=== PATIENT | male | born 1960 | race Caucasian/White ===

== ENCOUNTER 2018-10-06 01:20 | Inpatient (IN) | payer BC ==
[2018-10-06] VITALS (14 sets, daily range): BP systolic 111–135; BP diastolic 63–89
[~2018-10-06] VITALS: Ht 190.5 cm; Wt 83.0 kg
[~2018-10-06 01:20] MED LIST: ALBU2.5V36 INH; ALBU8.5H IH; ALLO-119 PO; ASPI81TA94 PO; FOLI-68 PO; HYDR-653 PO; LOR1 PO; MORP-183 PO; ONDA4TAB9 PO; PANT40TA65 PO; PYRI100T57 PO; SERT-181 PO; SODCTAB PO; TORS5TAB PO
[2018-10-06] MEDS ORDERED: FAMOTIDINE 20 MG TAB PO ONE (07:55)
[2018-10-06] MEDS ORDERED: NORMOSOL R SOLN(*) 1000 ML BAG 1,000 ML IV PRN (07:55)
[2018-10-06] MEDS ORDERED: MIDAZOLAM 2 MG/2 ML VIAL IVP PRN (07:55)
[2018-10-06] MEDS ORDERED: LIDOCAINE/SOD BICARB 8.4% SYR ID ONE (07:55)
[2018-10-06] MEDS ORDERED: fentaNYL CITR 250 MCG/5 ML AMP ONE (08:01)
[2018-10-06] MEDS ORDERED: ONDANSETRON 4 MG/2 ML VIAL ONE (08:02)
[2018-10-06] MEDS ORDERED: LIDOCAINE MPF 1% 5 ML VIAL ONE (08:02)
[2018-10-06] MEDS ORDERED: DEXAMETHASONE SOD PHOS 10MG/ML ONE (08:02)
[2018-10-06] MEDS ORDERED: PROPOFOL EMUL(*) 10MG/ML 20 ML 20 ML ONE (08:02)
[2018-10-06] MEDS ORDERED: KETAMINE HCL 200 MG/20 ML MDV ONE (08:04)
[2018-10-06] MEDS ORDERED: NS 0.9% 20 ML SDV 20 ML ONE (08:06)
[2018-10-06] MEDS ORDERED: REMIFENTANIL HCL 1 MG VIAL ONE (08:13)
[2018-10-06] MEDS ORDERED: LIDO/EPI 1% MDV 1:100,000 20ML INFIL ONE (08:35)
[2018-10-06] MEDS ORDERED: BACITRACIN OINT 15 GM TUBE TP ONE (08:35)
[2018-10-06] MEDS ORDERED: SUCCINYLCHOL CHL 100MG/5ML SYR IVP ONE (08:55)
[2018-10-06] MEDS ORDERED: LR(*) 1000 ML BAG 1,000 ML IV PRN (09:01)
[2018-10-06] MEDS ORDERED: ePHEDrine 25 MG/5 ML DISP.SYR IVP ONE (09:04)
[2018-10-06] MEDS ORDERED: LORazepam 1 MG TAB PO PRN (09:05)
[2018-10-06] MEDS ORDERED: PROMETHAZINE 25 MG/ML 1 ML AMP IVP PRN (09:05)
[2018-10-06] MEDS ORDERED: ALBUTEROL 8 GM INHALER INH PRN (09:05)
--- NOTE | 2018-10-06 09:08 | Post Operative Note ---
Operative Note - ENT Operative Day Date: Oct 06, 2018 Physicians Surgeon: Finn Vendor Management Consultant: Garfield Anesthesia: GETA Diagnosis Pre-Op Diagnosis: metastatic SCC of supraglottis Post-Op Diagnosis: same Procedure Findings: see dictated note Procedure(s): right neck dissection, levels II-V Specimen Removed:(Maybe N/A): right neck dissection Complications: none Fluids Fluids: see anesthesia note Estimated Blood Loss: 100 ml WILLIS VASQUEZ JR, MD Oct 06, 2018 09:08
[2018-10-06] MEDS ORDERED: ceFAZolin(*) 2GM/D5W 50ML 50 ML IVPB ONE (09:30)
[2018-10-06] MEDS ORDERED: NICOTINE 14 MG/24 HR PATCH TD SCH (10:00)
[2018-10-06] MEDS ORDERED: fentaNYL CITR 100 MCG/2 ML AMP ONE ×2 (12:19→12:52)
[2018-10-06] MEDS ORDERED: ESMOLOL 10 MG/ML 10ML SDV ONE (12:32)
[2018-10-06] MEDS ORDERED: HYDR-389 PO (13:56)
[2018-10-06] MEDS: MORPHINE 2 MG/ML SYR IVP PRN ×3 (14:01→23:58)
--- NOTE | 2018-10-06 14:22 | OPERATIVE REPORT 1 ---
EVENT DATE: October 06, 2018 SURGEON: Tao Briseno MD ANESTHESIOLOGIST: Brenton Glass MD ANESTHESIA: General endotracheal. MANAGER CLINICAL PHARMACY: Veronica Merrill CST PREOPERATIVE DIAGNOSIS Metastatic supraglottic squamous cell carcinoma. POSTOPERATIVE DIAGNOSIS Metastatic supraglottic squamous cell carcinoma. PROCEDURE PERFORMED Right modified radical neck dissection, levels 2 through 5 with sacrifice of the internal jugular vein. INDICATIONS Please refer to the preoperative note. DESCRIPTION OF PROCEDURE The patient was positively identified in the preoperative area. He was accompanied there by his . Risks again included but were not limited to bleeding, infection, injury to vascular and/or nervous structures including but not limited to the internal jugular vein, carotid artery, accessory lymphatic ducts, the vagus hypoglossal accessory and gurjit mandibular nerves and those associated with anesthesia. The patient acknowledged understanding of those risks. He was then brought back to the operative suite, placed supine on the operative table and anesthesia was administered. Once asleep, the patient was positioned, then prepped and draped in the usual sterile fashion. Favorable neck crease was identified, greater than two finger breadths below the angle of the mandible and approximately a 15 cm incision was marked. Approximately 5 cc of 1% lidocaine with epinephrine was infiltrated. The aforementioned incision was then made with a 15 blade. The underlying subcutaneous tissue was then dissected with Bovie electrocautery. The platysma muscle was identified and divided with Bovie electrocautery. The patient was noted to have significant scarring likely secondary to his radiation. subplatysmal flaps were elevated superiorly and inferiorly. The fascia was carefully incised with Bovie electrocautery just lateral to its anterior margin. The fascial then was elevated anteriorly and the posteriorly along the sternocleidomastoid muscle. Of note, at the level 3 region the patient was noted to have a suspected metastatic node invading into the muscle. Therefore, a clean rim of sternocleidomastoid tissue was taken with the specimen. I continued my dissection posteriorly into the level 5 region. I then dissected deep to the floor of the neck preserving the spinal roots. I then continued my dissection anteriorly. Again, in the level 3 region, the necrotic node was found to be adherent to the internal jugular vein. As the patient was already status post radiation treatment, I made the decision to sacrifice the vein. This was clamped superiorly and inferiorly and suture ligated. The accessory nerve was identified and preserved. I then came across the floor of the neck. The node packet was rotated anteriorly. The carotid artery was freed from the specimen including the internal jugular vein. The specimen was sent in its entirety for permanent pathology. The wound was then copiously irrigated with normal saline solution. The carotid, vagus and accessory nerves were found to be clear and intact. A Eddie-Martin drain was placed. The platysma muscle was closed with interrupted chronic suture. The skin was then closed in an intermediate fashion. The patient was then turned to anesthesia for emergence. ESTIMATED BLOOD LOSS 100 cc. COMPLICATIONS None. MTDD
[2018-10-06] MEDS ORDERED: NS(*) 0.9% 250 ML BAG 250 ML ONE (16:29)
[2018-10-06] MEDS: ceFAZolin(*) 1 GM VIAL 1 GM in NS(*) 0.9% 100 ML MINI-BAG 100 ML IVPB SCH (16:48)
[2018-10-06] MEDS ORDERED: HYDROCOD/ACETAMIN 2.5-108/5 ML 5 ML UDC PO PRN (18:30)
[2018-10-06] MEDS: MORPHINE CR 15 MG TABCR PO SCH (20:21)
[2018-10-06] MEDS: BACITRACIN OINT 0.9 GM PKT TP SCH (20:21)
[2018-10-06] MEDS: ONDANSETRON 4 MG ODT TABDP SL PRN (20:21)
[2018-10-06] MEDS: PANTOPRAZOLE SOD 40 MG TABEC PO SCH (20:21)
[2018-10-07] MEDS: ceFAZolin(*) 1 GM VIAL 1 GM in NS(*) 0.9% 100 ML MINI-BAG 100 ML IVPB SCH ×3 (00:22→16:56)
[2018-10-07] MEDS: MORPHINE 2 MG/ML SYR IVP PRN ×3 (02:17→06:37)
[2018-10-07 04:04] VITALS: BP 113/68
[2018-10-07 07:29] VITALS: BP 108/63
--- NOTE | 2018-10-07 08:00 | ENT Progress Note ---
Subjective Progress Notes Subjective S: Post op day 1-S/P neck dissection. Patient is doing better this am except having a right sided headache. The liquid Lortab does not seem to be working for the pain. His usual dosage at home is Lortab 750mg--2 tabs every 4 hours. He would like to go back to that dosage. Physical Exam Vital Signs Date Time Temp Pulse Resp B/P (MAP) Pulse Ox O2 Delivery O2 Flow Rate FiO2 10/07/18 07:29 98.0 82 16 108/63 (78) 92 Nasal Cannula 4.0 Intake and Output 10/07/18 07:00 Intake Total 2716 ml Output Total 870 ml Balance 1846 ml Intake Oral 480 ml IV Total 2236 ml Output Urine Total 175 ml Emesis 475 ml Drainage Total 120 ml Estimated Blood Loss 100 ml # Voids 5 General Appearance: Alert, Awake Neuro: No Gross deficits ENT: Moist Mucous Membranes Neck: Other (Incision looks great. Still draining serous fluid. ) Assessment and Plan Problems: (1) Squamous cell cancer of epiglottis Status: Acute Assessment & Plan: Change meds to Lortab 750mg--2 po q 4 hours. DC liquid Lortab. Ambulation prn. Toradol 15mg IV q 8 hours. Anticipate DC home tomorrow. EMILY ZAMBRANO PA-C Oct 07, 2018 08:00
[2018-10-07] MEDS: SODIUM CHLORIDE 1 GR TAB PO SCH (08:31)
[2018-10-07] MEDS: APAP/HYDROCODONE 325/7.5 TAB PO PRN ×3 (08:32→17:00)
[2018-10-07] MEDS: TORSEMIDE 20 MG TAB PO SCH (08:32)
[2018-10-07] MEDS: ALLOPURINOL 300 MG TAB PO SCH (08:32)
[2018-10-07] MEDS: MORPHINE CR 15 MG TABCR PO SCH ×2 (08:32→20:36)
[2018-10-07] MEDS: SERTRALINE HCL 50 MG TAB PO SCH (08:32)
[2018-10-07] MEDS: BACITRACIN OINT 0.9 GM PKT TP SCH ×2 (08:36→20:42)
[2018-10-07] MEDS: KETOROLAC 15 MG/ML VIAL IVP SCH ×2 (11:32→17:43)
[2018-10-07 11:37] VITALS: BP 113/89
[2018-10-07 16:03] VITALS: BP 102/58
[2018-10-07 16:45] VITALS: Ht 190.5 cm; Wt 83.0 kg
[2018-10-07 19:42] VITALS: BP 104/66
[2018-10-07] MEDS: PANTOPRAZOLE SOD 40 MG TABEC PO SCH (20:42)
[2018-10-07] MEDS ORDERED: NICOTINE 14 MG/24 HR PATCH TD SCH (21:00)
[2018-10-07 23:24] VITALS: BP 115/63
[2018-10-08] MEDS: ceFAZolin(*) 1 GM VIAL 1 GM in NS(*) 0.9% 100 ML MINI-BAG 100 ML IVPB SCH ×2 (00:20→08:23)
[2018-10-08] MEDS: KETOROLAC 15 MG/ML VIAL IVP SCH ×2 (00:21→06:05)
[2018-10-08 04:13] VITALS: BP 128/76
[2018-10-08] MEDS: APAP/HYDROCODONE 325/7.5 TAB PO PRN (04:51)
[2018-10-08] MEDS: ONDANSETRON 4 MG ODT TABDP SL PRN (04:51)
[2018-10-08 06:41] VITALS: BP 103/68
[2018-10-08] MEDS ORDERED: CEFU500T10 PO (08:13)
--- NOTE | 2018-10-08 08:17 | Hospitalist Depart ---
Discharge Summary Reason for Hosp/Final Diag: (1) Squamous cell cancer of epiglottis Status: Acute Hospital Course & Plan: Patient underwent right neck dissection on day of a dmission. Merlin reg diet. Pain controlled. Plan on d/c home with AGNES. Departure Weight (Pounds): 183 Condition: Improved Discharge: Home Discharge Code Status: Full Code Time Spent: < 30 min Discharge Instructions Home Meds Reported Medications Acetaminophen/Hydrocodone (HYDROCODON-ACETAMINOPH 7.5-325) 1 Each Ea, 1 TAB PO Q4H PRN for PAIN 10/06/18 Pyridoxine Hcl (VITAMIN B-6) 100 Mg Tablet, 100 MG PO BID 09/25/18 Torsemide (TORSEMIDE) 5 Mg Tablet, 5 MG PO DAILY 09/18/18 Pantoprazole Sodium (PANTOPRAZOLE SODIUM) 40 Mg Tablet.dr, 40 MG PO QDAY, TAB.SR 09/18/18 Ondansetron 4 Mg Odt (ONDANSETRON 4 MG ODT) 4 Mg Tab.rapdis, 8 MG PO DAILY PRN for NAUSEA, TAB 09/18/18 Morphine Sulfate (MS CONTIN) 30 Mg Tablet.er, 30 MG PO BID 09/18/18 Lorazepam (LORAZEPAM) 1 Mg Tab, 1 MG PO DAILY PRN for ANXIETY, TAB 09/18/18 Allopurinol (ZYLOPRIM) 300 Mg Tablet, 300 MG PO QDAY, TAB 09/18/18 Albuterol Sulfate 90 Mcg/Act (PROAIR HFA 90 MCG/ACT) 8.5 Gm Hfa.aer.ad, 2 PUFF IH Q4-6H PRN for SHORTNESS OF BREATH, INHALER 09/18/18 Albuterol Sulfate 0.083% (ALBUTEROL SULFATE 0.083%) 2.5 Mg/3 Ml Vial.neb, 2.5 MG INH PRN for WHEEZING, INH 09/18/18 Folic Acid (FOLIC ACID) 1 Mg Tablet, 1 MG PO QDAY, TAB 09/18/18 Aspirin (ASPIRIN) 81 Mg Tab.chew, 81 MG PO QDAY, TAB.CHEW 09/18/18 Sertraline Hcl (SERTRALINE HCL) 100 Mg Tablet, 1 TAB PO QDAY, TAB 09/18/18 Sodium Chloride (SODIUM CHLORIDE) 1 Gm Tab, 2 TAB PO BID, TAB 09/18/18 Discontinued Reported Medications Hydrocodone Bit/Acetaminophen (NORCO 5-325 TABLET) 1 Each Tablet, 1 EACH PO, TAB 09/18/18 Diet: Regular Activity: No Heavy Lifting, No Exertion Special Instructions: Regular diet. Record AGNES output twice daily. May shower. Do not get drain wet. Antibiotic ointment to wound twice a day. Nurse will call on Saturday to discuss drain output and arrange follow up visit. WILLIS VASQUEZ JR, MD Oct 08, 2018 08:16
[2018-10-08] MEDS: SODIUM CHLORIDE 1 GR TAB PO SCH (08:23)
[2018-10-08] MEDS: MORPHINE CR 15 MG TABCR PO SCH (08:23)
[2018-10-08] MEDS: SERTRALINE HCL 50 MG TAB PO SCH (08:23)
[2018-10-08] MEDS: BACITRACIN OINT 0.9 GM PKT TP SCH (08:23)
[2018-10-08] MEDS: ALLOPURINOL 300 MG TAB PO SCH (08:23)
[2018-10-08] MEDS: TORSEMIDE 20 MG TAB PO SCH (08:23)
== END 2018-10-08 09:46 | disposition home or self-care (01) | DRG 989 ==
LOC: OR 01:20 → MED 13:45
PROVIDERS: ADMIT Otolaryngology; ATTEND Otolaryngology
PROC: 07B10ZX Excision of Right Neck Lymphatic, Open Approach, Diagnostic (ICD-10-PCS; principal; 2018-10-06 08:58)
DX: C78.39 Secondary malignant neoplasm of other respiratory organs (principal); F17.210 Nicotine dependence, cigarettes, uncomplicated; I11.0 Hypertensive heart disease with heart failure; I48.2 Chronic atrial fibrillation; I25.10 Atherosclerotic heart disease of native coronary artery without angina pectoris; I50.9 Heart failure, unspecified; J44.9 Chronic obstructive pulmonary disease, unspecified; G47.30 Sleep apnea, unspecified; K27.7 Chronic peptic ulcer, site unspecified, without hemorrhage or perforation; F41.8 Other specified anxiety disorders; Z92.21 Personal history of antineoplastic chemotherapy
CPT/HCPCS: C9399; J0330; J0690; J1100; J1885; J2001; J2270; J2405; J2704; J3010; J3490; J7050; S0119